=== PATIENT | male | born 1990 | race Caucasian/White ===

== ENCOUNTER 2022-10-01 20:36 | Emergency (ER) | payer OTHER ==
[~2022-10-01] VITALS: Ht 187 cm; Wt 159.0 kg
[2022-10-01] MEDS ORDERED: morphine INJ 10 MG/ML 1ML (SYR OR VIAL) IVP STA ×2 (20:41→21:23)
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
--- NOTE | 2022-10-01 22:12 | Diagnostic Imaging Report ---
INDICATION: Right lower extremity pain status post injury. COMPARISON: None. FINDINGS: Multiple radiographic views of the right tibia and fibula were obtained and show extensive comminuted intra-articular fracture of the proximal tibia. This appears to involve both the lateral and medial tibial plateaus. There is also extension into the proximal tibial shaft with mild displacement of the shaft fracture fragments. There is also acute mildly displaced obliquely oriented fracture of the proximal fibular shaft. Included portions of the distal femur are intact. Patella appears appropriate. Right knee and ankle joint spaces appear maintained. IMPRESSION: There are acute fractures of the proximal right tibia and fibula. Dictated by: Dictated on workstation # [id number]
[2022-10-01] MEDS ORDERED: HYDROmorphone 2 MG/ML VIAL (DILAUDID) IV ONE (23:00)
[2022-10-01 23:04] VITALS: BP 147/84
== END 2022-10-01 23:04 | disposition short-term general hospital (02) ==
LOC: ER 20:39
DX: S82.141A Displaced bicondylar fracture of right tibia, initial encounter for closed fracture (principal); W22.8XXA Striking against or struck by other objects, initial encounter; Y92.096 Garden or yard of other non-institutional residence as the place of occurrence of the external cause
CPT/HCPCS: 29505; 73590